=== PATIENT | female | born 1960 | race Hispanic/Latino ===

== ENCOUNTER → 2017-09-01 | Outpatient (CLI) | payer OTHER ==
[~2017-09-01] MED LIST: ATOR-2 PO; DICL50TA9 PO; GABA-318 PO; GLIM4TAB3 PO; INSLAN SQ; INSU200I SQ; LIRA0.6P SQ; LISI1TAB11 PO; METF10004 PO; PANT40TA25 PO
== END | disposition home or self-care (01) ==
LOC: RAH 08:39
PROVIDERS: ATTEND Internal Medicine Medical Oncology
DX: Z45.2 Encounter for adjustment and management of vascular access device (principal)
CPT/HCPCS: 93306

== ENCOUNTER 2018-09-10 15:31 | Emergency (ER) | payer OTHER ==
[~2018-09-10 15:31] MED LIST changes: -GABA-318 PO; +GABA600T10 PO; +METF-446 PO; -METF10004 PO
[2018-09-10] MEDS ORDERED: KETOROLAC TROMETHAMINE 60 MG/2 ML VIAL ONE (16:16)
== END 2018-09-10 17:11 | disposition home or self-care (01) ==
LOC: EDH 15:31
DX: M25.812 Other specified joint disorders, left shoulder (principal); E11.9 Type 2 diabetes mellitus without complications; I10 Essential (primary) hypertension; E78.5 Hyperlipidemia, unspecified; Z85.3 Personal history of malignant neoplasm of breast
CPT/HCPCS: 73030; 96372; 99283; J1885

== ENCOUNTER → 2020-04-05 | Outpatient (CLI) | payer OTHER ==
[~2020-04-05] MED LIST changes: -GLIM4TAB3 PO; +GLIM4TAB36 PO; -LISI1TAB11 PO; +LISI1TAB51 PO; -PANT40TA25 PO; +PANT40TA54 PO
== END | disposition home or self-care (01) ==
LOC: SHCH 14:32
PROVIDERS: ATTEND Internal Medicine Cardiovascular Disease
DX: I10 Essential (primary) hypertension (principal)
CPT/HCPCS: 93306; 93356

== ENCOUNTER → 2020-04-08 | Outpatient (CLI) | payer OTHER ==
[~2020-04-08] MED LIST changes: +REGADENOSON 0.4 MG/5 ML PF SYG IVP SCH
== END | disposition home or self-care (01) ==
LOC: SHCH 08:15
PROVIDERS: ATTEND Internal Medicine Cardiovascular Disease
DX: R00.2 Palpitations (principal); R00.0 Tachycardia, unspecified; R06.00 Dyspnea, unspecified; R51.9 Headache, unspecified; R07.89 Other chest pain; R01.1 Cardiac murmur, unspecified
CPT/HCPCS: 78452; 93017; 96374; A9500 ×2; J2785

== ENCOUNTER → 2020-06-25 | Outpatient (CLI) | payer OTHER ==
[~2020-06-25] MED LIST changes: -REGADENOSON 0.4 MG/5 ML PF SYG IVP SCH
[2020-06-25 11:48] LABS: INR 1.07 (0.85-1.15); PROTHROMBIN TIME 11.4 SEC (9.6-11.6)
[2020-06-25 11:50] LABS: PARTIAL THROMBOPLASTIN TIME 29.9 SEC (26.3-35.5)
== END | disposition home or self-care (01) ==
LOC: EDSTATUS 06-19 08:00 → RAH 09:39
PROVIDERS: ATTEND Internal Medicine Medical Oncology
DX: R59.0 Localized enlarged lymph nodes (principal); R10.9 Unspecified abdominal pain
CPT/HCPCS: 36415; 76882; 85610; 85730

== ENCOUNTER → 2021-04-07 | Outpatient (CLI) | payer OTHER | END | disposition home or self-care (01) | LOC: RAH 11:02 | PROVIDERS: ATTEND Internal Medicine Cardiovascular Disease | DX: Z13.6 Encounter for screening for cardiovascular disorders (principal); Z90.12 Acquired absence of left breast and nipple | CPT/HCPCS: 75571 ==

== ENCOUNTER → 2021-12-04 | Outpatient (CLI) | payer OTHER | END | disposition home or self-care (01) | LOC: SLP 20:25 | PROVIDERS: ATTEND Internal Medicine Cardiovascular Disease | DX: G47.33 Obstructive sleep apnea (adult) (pediatric) (principal) | CPT/HCPCS: 95810 ==

== ENCOUNTER → 2021-12-11 | Outpatient (CLI) | payer OTHER | END | disposition home or self-care (01) | LOC: SLP 20:18 | PROVIDERS: ATTEND Internal Medicine Cardiovascular Disease | DX: G47.33 Obstructive sleep apnea (adult) (pediatric) (principal) | CPT/HCPCS: 95811 ==

== ENCOUNTER 2023-07-13 07:16 | Day surgery (SDC) | payer OTHER ==
[2023-07-08 10:38] VITALS: BP 151/80; PULSE 60; RESP 18
[2023-07-08 10:41] LABS: BASOPHILS # (AUTO) 0.01 K/uL (0.00-0.20); BASOPHILS % (AUTO) 0.2 % (0.0-5.0); EOSINOPHILS # (AUTO) 0.04 K/uL (0.00-0.70); EOSINOPHILS % (AUTO) 0.9 % (0.0-8.0); HEMATOCRIT 43.5 % (36-48); IMMATURE GRANULOCYTE ABSOLUTE 0.01 K/uL (0-1); LYMPHOCYTES # (AUTO) 2.1 K/uL (1.0-4.8); LYMPHOCYTES % (AUTO) 44.6 % (21.0-51.0); MEAN CORPUSCULAR HEMOGLOBIN 30.1 pg (27.0-33.0); MEAN CORPUSCULAR HGB CONC 32.4 g/dL (32.0-36.0); MEAN CORPUSCULAR VOLUME 92.8 fL (79-99); MONOCYTES # (AUTO) 0.4 K/uL (0.1-1.0); MONOCYTES % (AUTO) 8.7 % (3.0-13.0); NEUTROPHILS # (AUTO) 2.1 K/uL (1.8-7.7); NEUTROPHILS % (AUTO) 45.4 % (40.0-77.0); PLATELET COUNT (AUTO) 190 K/uL (130-400); RED BLOOD CELL COUNT(AUTO) 4.69 MIL/uL (4.00-5.50); RED CELL DISTRIBUTION WIDTH 13.1 % (11.0-15.5); WHITE BLOOD COUNT (AUTO) 4.7 K/uL (4.8-10.8)
[2023-07-08 10:57] LABS: INR 0.98 (0.85-1.15); PROTHROMBIN TIME 11.4 SEC (9.6-11.6)
[2023-07-08 10:58] LABS: PARTIAL THROMBOPLASTIN TIME 34.3 SEC (26.3-35.5)
[2023-07-08 11:17] LABS: CREATININE 0.6 mg/dL (0.5-1.5)
[2023-07-08 11:20] LABS: POTASSIUM 2.7 mmol/L (3.5-5.1)
[2023-07-13] VITALS (17 sets, daily range): BP systolic 109–163; BP diastolic 53–77; PULSE 52–72; RESP 10–20
[~2023-07-13] VITALS: Ht 170.2 cm; Wt 75.4 kg
[~2023-07-13 07:16] MED LIST changes: +CHOL100040 PO; +DESL5TAB45 PO; -DICL50TA9 PO; +EMPA25TA PO; -GLIM4TAB36 PO; +ICOS1CAP PO; -INSLAN SQ; +INSU100V37 SQ; -LIRA0.6P SQ; +MAGN250T35 PO; +METO25TA6 PO; +SEMA0.258 SQ; +VITAMIN B12 PO
[2023-07-13] MEDS ORDERED: 0.9%NACL 1000ML 1,000 ML IV ONE (07:33)
[2023-07-13 07:47] LABS: CREATININE 0.8 mg/dL (0.5-1.5); POTASSIUM 3.8 mmol/L (3.5-5.1)
[2023-07-13] MEDS: CEFAZOLIN SODIUM 2 GM VIAL ONE ×2 (08:02→09:15)
[2023-07-13] MEDS ORDERED: BUPIVACAINE/PF 0.5% 30ML VIAL ONE (08:19)
[2023-07-13] MEDS ORDERED: SCOPOLAMINE HYDROBROMIDE 1 EACH ADH..PATCH TD ONE (08:37)
[2023-07-13] MEDS ORDERED: ACETAMINOPHEN 1,000 MG/100 ML VIAL IV ONE (08:38)
[2023-07-13] MEDS ORDERED: LIDOCAINE PF 100MG/5ML (2%) SYRINGE 5ML ONE (08:41)
[2023-07-13] MEDS ORDERED: PROPOFOL 10 MG/ML 20ML VIAL IV ONE (08:41)
[2023-07-13] MEDS ORDERED: ROCURONIUM BROMIDE 10MG/1ML 5ML VL ONE ×2 (08:41→09:35)
[2023-07-13] MEDS ORDERED: MIDAZOLAM HCL 1 MG/ML 2ML VIAL ONE (08:41)
[2023-07-13] MEDS ORDERED: FENTANYL CITRATE PF 50 MCG/1 ML 2ML VIAL ONE (08:43)
[2023-07-13] MEDS ORDERED: FAMOTIDINE 20MG VIAL IV ONE ×2 (08:49→09:33)
[2023-07-13] MEDS ORDERED: DEXAMETHASONE SOD PHOSPHATE 10MG/ML 1ML VIAL ONE (09:06)
[2023-07-13] MEDS ORDERED: ONDANSETRON 4MG INJ ONE ×2 (09:06→10:15)
[2023-07-13] MEDS ORDERED: GLYCOPYRROLATE 0.2 MG/ML 5 ML VIAL ONE (09:14)
[2023-07-13] MEDS ORDERED: NEOSTIGMINE METHYLSULFATE 1MG/ML IV ONE (09:14)
[2023-07-13] MEDS ORDERED: KETAMINE HCL 100 MG/ML 5ML VIAL IJ ONE (09:33)
[2023-07-13] MEDS ORDERED: DOCU-116 PO (09:51)
[2023-07-13] MEDS ORDERED: TRAM50TA4 PO (09:51)
[2023-07-13] MEDS ORDERED: GABA-529 PO (09:51)
[2023-07-13] MEDS ORDERED: METH-662 PO (09:51)
[2023-07-13] MEDS ORDERED: MEPERIDINE-PF 25 MG/ML SYG ONE ×2 (10:15→10:27)
[2023-07-13] MEDS ORDERED: KETOROLAC 30MG VIAL (30MG/ML) ONE (10:45)
== END 2023-07-13 11:55 | disposition home or self-care (01) ==
LOC: DAH 07:16
PROVIDERS: ATTEND Surgery
DX: D17.1 Benign lipomatous neoplasm of skin and subcutaneous tissue of trunk (principal); R10.815 Periumbilic abdominal tenderness; I10 Essential (primary) hypertension; K21.9 Gastro-esophageal reflux disease without esophagitis; F32.A Depression, unspecified; E11.9 Type 2 diabetes mellitus without complications; E78.00 Pure hypercholesterolemia, unspecified; G47.30 Sleep apnea, unspecified; E55.9 Vitamin D deficiency, unspecified; R53.83 Other fatigue; F41.9 Anxiety disorder, unspecified; R50.9 Fever, unspecified; Z79.899 Other long term (current) drug therapy; Z79.01 Long term (current) use of anticoagulants; Z85.3 Personal history of malignant neoplasm of breast; Z79.4 Long term (current) use of insulin; Z98.890 Other specified postprocedural states; Z90.11 Acquired absence of right breast and nipple; Z79.811 Long term (current) use of aromatase inhibitors
CPT/HCPCS: 80048 ×2; 85025; 85610; 85730; 36415 ×2; 49320; 22903; 64486; 82948 ×2; 88304; A6260; A4663; J7030 ×2; J3490 ×6; J3010; J1100; J2001; J2250; J2704; J2405 ×2; J1885; J2710; J0665; J2175 ×2; J0690; A4649 ×4; A4215; A4223; A4222; A4221; A4600

== ENCOUNTER → 2023-08-05 | Outpatient (CLI) | payer OTHER ==
[~2023-08-05] MED LIST changes: +DOCU-116 PO; +GABA-529 PO; +METH-662 PO; +TRAM50TA4 PO
== END | disposition home or self-care (01) ==
LOC: RAH 08:46
PROVIDERS: ATTEND Surgery
DX: K44.9 Diaphragmatic hernia without obstruction or gangrene (principal); R13.10 Dysphagia, unspecified; K21.00 Gastro-esophageal reflux disease with esophagitis, without bleeding
CPT/HCPCS: 74240

== ENCOUNTER → 2023-09-10 | Outpatient (CLI) | payer OTHER ==
[2023-09-10] MEDS: REGADENOSON 0.4 MG/5 ML PF SYG IVP ONE (13:58)
== END | disposition home or self-care (01) ==
LOC: SHCH 08:59
PROVIDERS: ATTEND Internal Medicine Cardiovascular Disease
DX: I25.10 Atherosclerotic heart disease of native coronary artery without angina pectoris (principal)
CPT/HCPCS: 78452; 93017; J2785; A9500 ×2; 96374

== ENCOUNTER → 2023-09-15 | Outpatient (CLI) | payer OTHER | END | disposition home or self-care (01) | LOC: SHCH 08:28 | PROVIDERS: ATTEND Internal Medicine Cardiovascular Disease | DX: I35.0 Nonrheumatic aortic (valve) stenosis (principal) | CPT/HCPCS: 93306 ==

== ENCOUNTER 2023-12-30 07:01 | Day surgery (SDC) | payer OTHER ==
[~2023-12-30] VITALS: Ht 152.4 cm; Wt 75.3 kg
[2023-12-30] VITALS (12 sets, daily range): BP systolic 128–152; BP diastolic 62–77; PULSE 56–69; RESP 14–18
[2023-12-30] MEDS ORDERED: METO25TA6 PO (07:44)
[2023-12-30] MEDS ORDERED: ICOS1CAP PO (07:44)
[2023-12-30] MEDS ORDERED: FENO145T26 PO (07:44)
[2023-12-30] MEDS ORDERED: LISI1TAB51 PO (07:44)
[2023-12-30] MEDS ORDERED: GABA600T10 PO (07:50)
[2023-12-30] MEDS ORDERED: FAMO40TA7 PO (07:50)
[2023-12-30] MEDS ORDERED: CHOL100046 PO (07:50)
[2023-12-30] MEDS: 0.9%NACL 1000ML 1,000 ML IV ONE (08:03)
[2023-12-30] MEDS ORDERED: PROPOFOL 10 MG/ML 20ML VIAL IV ONE (09:39)
[2023-12-30] MEDS ORDERED: ONDANSETRON 4MG INJ ONE (09:39)
== END 2023-12-30 11:08 | disposition home or self-care (01) ==
LOC: ENDO 07:01 → DAH 07:01 → ENDO 11:08
PROVIDERS: ATTEND Surgery
DX: R13.13 Dysphagia, pharyngeal phase (principal); K21.00 Gastro-esophageal reflux disease with esophagitis, without bleeding; K44.9 Diaphragmatic hernia without obstruction or gangrene; K22.89 Other specified disease of esophagus; E11.22 Type 2 diabetes mellitus with diabetic chronic kidney disease; I12.9 Hypertensive chronic kidney disease with stage 1 through stage 4 chronic kidney disease, or unspecified chronic kidney disease; N18.9 Chronic kidney disease, unspecified; E66.9 Obesity, unspecified; C50.912 Malignant neoplasm of unspecified site of left female breast; I35.0 Nonrheumatic aortic (valve) stenosis; E78.2 Mixed hyperlipidemia; F41.9 Anxiety disorder, unspecified; F32.A Depression, unspecified; Z90.49 Acquired absence of other specified parts of digestive tract; Z90.710 Acquired absence of both cervix and uterus; Z90.12 Acquired absence of left breast and nipple; Z79.4 Long term (current) use of insulin; Z79.899 Other long term (current) drug therapy
CPT/HCPCS: 43239; 82948 ×2; J7030 ×2; J2704; J2405; A4620; A4215; A4223; A4657; A4222; A4221; A4663; A4606; J3490

== ENCOUNTER → 2024-02-08 | Outpatient (CLI) | payer OTHER ==
[~2024-02-08] MED LIST changes: -CHOL100040 PO; +CHOL100046 PO; -DESL5TAB45 PO; -DOCU-116 PO; +FAMO40TA7 PO; +FENO145T26 PO; -GABA-529 PO; -INSU200I SQ; -MAGN250T35 PO; -METH-662 PO; -SEMA0.258 SQ; -TRAM50TA4 PO; -VITAMIN B12 PO
== END | disposition home or self-care (01) ==
LOC: RAH 08:55
PROVIDERS: ATTEND Surgery
DX: K44.9 Diaphragmatic hernia without obstruction or gangrene (principal); K21.00 Gastro-esophageal reflux disease with esophagitis, without bleeding
CPT/HCPCS: 74240